=== PATIENT | male | born 1960 | race Caucasian/White ===

== ENCOUNTER 2022-02-18 14:07 | Emergency (ER) | payer MEDICARE, SELFPAY ==
--- NOTE | ~2022-02-18 | XR_ITS ---
XR shoulder RT min 2V DATE: 02/18/2022 14:32 INDICATION: Fall off of ladder onto upper posterior shoulder. Right shoulder pain. TECHNIQUE: 5 views COMPARISON: None FINDINGS: There appears to be fracture of the lateral aspect of the clavicle and possible fracture of the acromion process of the scapula No other apparent fracture. Normal coracoclavicular distance. IMPRESSION: Lateral clavicle and possible acromion process fracture. CT shoulder with the helpful for more definitive evaluation. Reviewed, dictated and finalized at location A. IMPRESSION: Lateral clavicle and possible acromion process fracture. CT shoulde r with the helpful for more definitive evaluation.
[2022-02-18 14:30] VITALS: BP 134/92; PULSE 67; RESP 16; TEMP 37.3; O2SAT 98
--- NOTE | 2022-02-18 14:37 | ED.UPPEXIN ---
HPI - Extremity Injury (Upper) General Chief Complaint: Extremity Injury, Upper Stated Complaint: right shoulder injury Source: patient Mode of arrival: ambulatory Limitations: no limitations History of Present Illness HPI narrative: 61-year-old male presented for complaint of right shoulder pain after falling off of a ladder today. He states he was at the second from the top step when he missed the step and fell landing on his right shoulder. He denies hitting his head or loss of consciousness he currently denies any neck pain, headache, dizziness, nausea, vomiting or tenderness. Endorses decreased range of motion to the right shoulder due to pain, denies radiating pain, numbness, tingling, weakness of the right extremity. he has applied ice. He is not on blood thinners. Related Data Home Medications Medication Instructions Recorded Confirmed folic acid 1 mg tablet 1 tablet PO DAILY 02/18/22 02/18/22 metoprolol succinate 25 mg 1 tablet PO DAILY 02/18/22 02/18/22 tablet,extended release 24 hr vitamin [id number] oral liquid ea PO 02/18/22 Allergies Allergy/AdvReac Type Severity Reaction Status Date / Time No Known Allergies Allergy Verified 02/18/22 14:47 Review of Systems Review of Systems: CONSTITUTIONAL: Denies body aches, fever, chills EYES: Denies visual changes CARDIOVASCULAR: Denies chest pain, palpitations, or edema. RESPIRATORY: Denies cough or dyspnea. GASTROINTESTINAL: Denies abdominal pain, nausea, vomiting, or diarrhea. SKIN: Denies rash, itching MUSCULOSKELETAL: Reports joint pain NEUROLOGIC: Denies headache, numbness, tingling, or weakness. PSYCH: Denies depression or anxiety. All systems reviewed & are unremarkable except as noted in HPI and below PMFSH Comments At time of signature, I have reviewed and agree with nursing past medical, surgical, social and family history unless otherwise noted. Please see nursing chart for further information. There is no relevant family history pertinent to the presenting complaint Exam Narrative: GENERAL: Well-appearing, well-nourished, and in no acute distress. HEAD: Normocephalic, atraumatic. EYES: conjunctivae clear NECK: Supple. No vertebral point tenderness, full range of motion. CHEST: Speaks in full sentences. No respiratory distress. HEART: Regular rate and rhythm. Normal and equal peripheral pulses. EXTREMITIES: Right shoulder tender with palpation over lateral clavicle, anterior and posterior deltoid; right hand has normal strength and sensation, limited range of motion at right shoulder; mild edema, posterior shoulder abrasion approx 2inches diameter, No skin tenting, or obvious deformity; radial pulse palpable and equal bilaterally, skin warm, dry, pink. Capillary refill less than 3 seconds. SKIN: Warm, dry, no rash. NEURO: Alert and oriented x3. Course Course Emergency Course: Patient is aware of diagnosis, understands and agrees to treatment plan. Anticipatory guidance given. Patient agrees to follow-up as directed and is aware of reasons to seek care at the emergency department. Portions of this record may have been created with voice recognition software Level of Care: Express Care Visit Vital Signs Vital signs: Vital Signs Temperature 99.2 F 02/18/22 14:30 Pulse Rate 67 02/18/22 14:30 Respiratory Rate 16 02/18/22 14:30 Blood Pressure 134/92 H 02/18/22 14:30 Pulse Oximetry 98 02/18/22 14:30 Oxygen Delivery Room Air 02/18/22 14:30 Temperature 99.2 F 02/18/22 14:30 Pulse Rate 67 02/18/22 14:30 Respiratory Rate 16 02/18/22 14:30 Blood Pressure 134/92 H 02/18/22 14:30 Pulse Oximetry 98 02/18/22 14:30 Oxygen Delivery Room Air 02/18/22 14:30 Reviewed Procedures Orthopedic Splinting/Casting Injury #1: Splinting/Casting Date: 02/18/22 Side: right Upper Extremity Injury Location: shoulder Other Orthopedic Equipment: other (sling to right arm applied
== END 2022-02-18 14:55 | disposition home or self-care (01) ==
PROVIDERS: Emergency Provider Nurse Practitioner Family
DX: S42.034A Nondisplaced fracture of lateral end of right clavicle, initial encounter for closed fracture (principal); W10.9XXA Fall (on) (from) unspecified stairs and steps, initial encounter; I10 Essential (primary) hypertension
CPT/HCPCS: 73030; 99214; A4565; G0463